=== PATIENT | female | born 1970 | race Caucasian/White ===

== ENCOUNTER → 2017-02-15 | Outpatient (CLI) | payer OTHER ==
[2015-05-07 05:57] VITALS: BP 111/80
[~2017-02-15] MED LIST: CYCL10TA2 PO; GABA-586 PO; GADOBUTROL 10 MMOL/10 ML VIAL IV ONE; IBUP-1007 PO; MAGN400C PO; NAPR500T8 PO
--- NOTE | 2017-02-15 14:16 | KCIC ---
BRAIN WO/W CONTRAST Indication: Reason For Study Reason: WORSENING HEADACHES, MEMORY LOSS / Spl. Instructions: 8cc Gadavist / History: TECHNIQUE: Axial diffusion weighted imaging was obtained. Additional sagittal T1, axial T1, axial FLAIR, and axial T2 weighted imaging of the brain was also performed. Postcontrast T1 weighted imaging was also performed after intravenous administration of gadolinium based contrast. FINDINGS: No abnormal signal within the brain parenchyma. No abnormal intracranial enhancement. No evidence of acute intracranial hemorrhage. No restricted diffusion to indicate acute infarct. No extra-axial fluid collections. No midline shift or mass effect. Ventricular size is appropriate. Midline structures have a normal anatomic configuration. Pituitary gland and infundibulum are unremarkable. Basal cisterns are patent. Arterial flow voids at the skull base and major dural venous sinuses are maintained. Globes and orbits are unremarkable. There is a layering fluid level in the right maxillary sinus. IMPRESSION: - No acute intracranial abnormality. No abnormal enhancement or mass. - Small layering fluid level in the right maxillary sinus. Correlate for clinical signs and symptoms of acute sinusitis. Electronically signed by: Morteza Khan (Feb 15, 2017 14:14:43)
== END | disposition home or self-care (01) ==
LOC: KCIC MRI 12:56
PROVIDERS: ATTEND Family Medicine
DX: J01.00 Acute maxillary sinusitis, unspecified (principal); R51 Headache
CPT/HCPCS: 70553; A9585

== ENCOUNTER 2018-01-06 08:29 | Emergency (ER) | payer SELFPAY, OTHER ==
[2018-01-06 08:55] LABS: ADD MAN DIFF? NO
[2018-01-06 09:04] LABS: ANION GAP 13 (6-14); BLOOD UREA NITROGEN 11 mg/dL (7-20); BUN/CREATININE RATIO 12 (6-20); CALCIUM 8.8 mg/dL (8.5-10.1); CARBON DIOXIDE 22 mmol/L (21-32); CHLORIDE 102 mmol/L (98-107); CREATININE 0.9 mg/dL (0.6-1.0); GFR 67.4; GLUCOSE 127 mg/dL (70-99); POTASSIUM 3.6 mmol/L (3.5-5.1); SODIUM 137 mmol/L (136-145)
[2018-01-06 09:05] LABS: BASO # 0.1 x10^3/uL (0.0-0.2); BASO % 1 % (0-3); EOS # 0.4 x10^3/uL (0.0-0.7); EOS % 6 % (0-3); HEMATOCRIT 42.3 % (36.0-47.0); HEMOGLOBIN 14.8 g/dL (12.0-15.5); LYMPH # 2.4 x10^3/uL (1.0-4.8); LYMPH % 37 % (24-48); MEAN CORPUSCULAR HEMOGLOBIN 33 pg (25-35); MEAN CORPUSCULAR HGB CONC 35 g/dL (31-37); MEAN CORPUSCULAR VOLUME 94 fL (79-100); MONO # 0.5 x10^3/uL (0.0-1.1); MONO % 7 % (0-9); NEUT # 3.2 x10^3uL (1.8-7.7); NEUT % 49 % (31-73); PLATELET COUNT 321 x10^3/uL (140-400); RED BLOOD COUNT 4.49 x10^6/uL (3.50-5.40); RED CELL DISTRIBUTION WIDTH 13.3 % (11.5-14.5); WHITE BLOOD COUNT 6.6 x10^3/uL (4.0-11.0)
[2018-01-06 09:10] LABS: ALBUMIN 3.3 g/dL (3.4-5.0); ALBUMIN/GLOBULIN RATIO 0.8 (1.0-1.7); ALK PHOS 75 U/L (46-116); ALT (SGPT) 19 U/L (14-59); AST (SGOT) 11 U/L (15-37); CREATINE KINASE 85 U/L (26-192); TOTAL BILIRUBIN 0.4 mg/dL (0.2-1.0); TOTAL PROTEIN 7.6 g/dL (6.4-8.2)
[2018-01-06] MEDS: KETOROLAC 30 MG/ML INJ. IV (09:16)
[2018-01-06] MEDS: IV NORMAL SALINE 500ML BAG 500 ML IV (09:21)
== END 2018-01-06 10:40 | disposition home or self-care (01) ==
LOC: ER 08:29
DX: M79.661 Pain in right lower leg (principal); M79.662 Pain in left lower leg; M19.90 Unspecified osteoarthritis, unspecified site; M79.7 Fibromyalgia; M41.9 Scoliosis, unspecified; G89.29 Other chronic pain; E66.9 Obesity, unspecified; Z79.899 Other long term (current) drug therapy; Z88.0 Allergy status to penicillin; Z68.31 Body mass index [BMI] 31.0-31.9, adult
CPT/HCPCS: 36415; 80053; 82550; 85025; 93970; 96361; 96374; 99285-25; J1885; J7040

== ENCOUNTER → 2021-06-17 | Outpatient (CLI) | payer OTHER ==
[2019-09-30 19:00] VITALS: BP 124/71
[~2021-06-17] MED LIST changes: -GABA-586 PO; +GABA300C18 PO; -GADOBUTROL 10 MMOL/10 ML VIAL IV ONE; +PRED50TA PO
--- NOTE | 2021-06-17 10:41 | RAD ---
EXAM: Lumbar spine, 2 views. HISTORY: Pain. COMPARISON: None. FINDINGS: 2 views of the lumbar spine are obtained. There is mild lumbar dextroscoliosis. There is de generative endplate remodeling with disc space narrowing at L5-S1. IMPRESSION: 1. Lumbar scoliosis. 2. Degenerative change at L5-S1. Electronically signed by: Randi Hidalgo MD (06/17/2021 10:39 AM) [id number]
== END ==
LOC: RAD 09:58
PROVIDERS: ATTEND Family Medicine
DX: Z02.71 Encounter for disability determination (principal); M47.817 Spondylosis without myelopathy or radiculopathy, lumbosacral region; M41.86 Other forms of scoliosis, lumbar region
CPT/HCPCS: 72100

== ENCOUNTER → 2021-07-15 | Outpatient (CLI) | payer OTHER ==
[2019-09-30 19:00] VITALS: BP 124/71
--- NOTE | 2021-07-16 09:07 | RAD ---
XR KNEE_LT 1-2 VIEWS History: Left knee pain Comparison: None. Technique: 2 views of left knee Findings: Osseous mineralization is normal. No fracture or dislocaton. Mild narrowing of the patellofemoral com partment. Subchondral cystic change at the patella. Small tricompartmental osteophytes. No significan t effusion. No focal soft tissue swelling. Impression: 1. Mild left knee osteoarthritis. Electronically signed by: Robetr Zaman MD (07/16/2021 9:05 AM) [id number]
== END ==
LOC: RAD 11:59
PROVIDERS: ATTEND Anesthesiology Pain Medicine
DX: Z02.71 Encounter for disability determination (principal); M17.12 Unilateral primary osteoarthritis, left knee; M25.762 Osteophyte, left knee
CPT/HCPCS: 73560; 73562